=== PATIENT | male | born 2000 | race Hispanic/Latino ===

== ENCOUNTER 2024-05-29 15:54 | Emergency (ER) | payer SELFPAY ==
[2024-05-29] MEDS ORDERED: IBUPROFEN 200 MG TAB PO ONE (16:19)
--- NOTE | 2024-05-29 19:01 | RAD REPORT ---
EXAMINATION: Lumbar Spine 3 Views CLINICAL INDICATION: Male, 23 years old. [facility] [[email or web address]] MAIN PAIN TECHNIQUE: AP, lateral, focused lateral lumbosacral views of the lumbar spine were obtained. COMPARISON: No prior exam. FINDINGS: For purposes of this dictation, it is assumed that there are 5 lumbar type vertebral bodies. ALIGNMENT: Straightening of normal lumbar lordosis which may be positional or secondary to muscle spa sm. No significant subluxation. BONES: Vertebral bodies are normal in height. No aggressive osseous lesions. DISCS: Disc heights are maintained. IMPRESSION: Straightening of normal lordosis may be positional or secondary muscle spasm. No other acute lumbar s pine abnormality.
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
[2024-05-29 20:07] VITALS: TEMP 98.5
[2024-05-29 20:11] VITALS: BP 112/77; O2SAT 100
== END 2024-05-29 19:47 | disposition home or self-care (01) ==
LOC: ER 15:54
DX: M54.50 Low back pain, unspecified (principal); R51.9 Headache, unspecified; V49.40XA Driver injured in collision with unspecified motor vehicles in traffic accident, initial encounter
CPT/HCPCS: 72100; 99283